=== PATIENT | male | born 1955 | race Caucasian/White ===

== ENCOUNTER 2016-06-11 20:57 | Emergency (ER) | payer OTHER ==
[2016-06-11] MEDS ORDERED: ASPIRIN 81 MG CHEW TAB ONE (21:03)
[2016-06-11] MEDS ORDERED: NITROGLYCERIN 0.4 MG TAB.SUBL SL ONE (21:03)
[2016-06-11] MEDS ORDERED: 0.9 % SODIUM CHLORIDE 1,000 ML IV ONE (21:03)
[2016-06-11] MEDS: NITROGLYCERIN 0.4 MG TAB.SUBL SL PRN ×3 (21:05→21:15)
[2016-06-11] MEDS ORDERED: MORPHINE SULFATE 4 MG/ML DISP.SYRIN IVP ONE ×2 (21:06→22:36)
[2016-06-11] MEDS ORDERED: ASPIRIN 81 MG CHEW TAB PO ONE (21:06)
--- NOTE | 2016-06-11 21:10 | ED Physician Documentation ---
Chest Pain - HISTORIAN Historian: patient - HPI Chief Complaint: Chest Pain Additional Information: started 3 days ago, on-off. has cardiac stent history, but NO AMI. He takes isosorbide at home. substernal achy chest pain with radiation to back and left arm. no other symptoms, no SOA, no diaphoresis. Onset: days ago Timing: gradual onset Duration: waxing, waning (he states that he has been having similar pain ever since his olaststent was placed. He last saw his solutions architect in april. he had angigram that was ok.) Last known Well Date: 06/09/16 Last Known Well Time: 21:11 Context: rest Severity: mild Quality: aching Chest Pain Radiation: arms, back Chest Pain Signs/Symptoms: denies: nausea, vomiting, diaphoresis, cool extremities, dizziness, dyspnea, tachypnea, tachycardia, hypotension, palpitations, weakness Worsened By: nothing Relieved By: nothing Further Comments: no - ROS CONST: no problems MS/LYMPH: none GI/: none. denies: vomiting, nausea EYES/ENT: none SKIN/ENDO: none NEURO/PSYCH: none - PAST HX DC risk factors: hypertension, cardiac disease, angina DVT/PE Risk Factors: none TAD/AAA risk factors: none Neuro deficit: none GI disease: none Lung disease: none Surgeries/Procedures: cardiac stent Immunizations: UTD Allergies/Adverse Reactions: Allergies Allergy/AdvReac Type Severity Reaction Status Date / Time No Known Allergies Allergy Verified 11/07/13 11:24 Home Medications: Ambulatory Orders Medication Instructions Recorded Aspirin EC [Ecotrin] 300 mg PO DAILY 11/07/13 - SOCIAL HX Smoking History: non-smoker Alcohol Use: none Drug Use: none - FAMILY HX Family HX: none - VITAL SIGNS Vital Signs: Vital Signs Temp Pulse Resp BP Pulse Ox 174/99 11/07/13 13:00 - REVIEWED ASSESSMENTS Nursing Assessment Reviewed: Yes Vitals Reviewed: Yes Progress - Progress Progress: Dr Bartlett, salesperson [employer] for [facility] called, he agrees that we should send him to [facility]. Talked to patient and he doesn't want to let the ambulance drive him. I gave him no choice. Dr Bartlett wants him to have lovenox 1mg/kg ED Results Lab/Radiology - Orders Orders: ED Orders Category Date Time Status Continuous EKG monitoring Q30M Care 06/11/16 21:06 Ordered Continuous Pulse Oximetry Q30M Care 06/11/16 21:[address] Saline Lock/IV NOW Care 06/11/16 21:06 Ordered CHEST 1 VIEW [RAD] Stat Exams 06/11/16 21:06 Ordered CBC/PLATELET/DIFF Routine Lab 06/11/16 21:06 Ordered CMP Routine Lab 06/11/16 21:06 Ordered CREATINE KINASE Routine Lab 06/11/16 21:06 Ordered TROPONIN I (cTnI) Stat Lab 06/11/16 21:06 Ordered 0.9 % Sodium Chloride [Normal Saline] 1,000 ml Med 06/11/16 21:03 Discontinued IV .STK-MED Aspirin Med 06/11/16 21:03 Discontinued 324 mg .ROUTE .STK-MED ONE Aspirin Med 06/11/16 21:06 Once 324 mg PO NOW ONE Morphine Sulfate [DepoDUR] Med 06/11/16 21:06 Once 2 mg IVP NOW ONE Nitroglycerin [Nitroquick] Med 06/11/16 21:06 Ordered 0.4 mg SL Q5M PRN Nitroglycerin [Nitroquick] Med 06/11/16 21:03 Discontinued 1.2 mg SL .STK-MED ONE Oxygen Daily Oxygen 06/11/16 21:15 Ordered EKG WITH COMPARISON Stat Ther 06/11/16 21:06 Ordered Chest Pain Physical Exam - EXAM General Appearance: no acute distress EENT: eye inspection normal, ENT inspection normal, pharynx normal Neck: nml inspection Respiratory: no resp. distress, nml breath sounds. No: resp.distress, manifests distinct pain on movement, wheezes, rales, rhonchi CVS: reg. rate & rhythm, no murmur Abdomen: soft Skin: warm/dry, normal color. No: diaphoresis Extremities: non-tender, normal range of motion, no evidence of injury, no edema Neuro: oriented X3, mood/affect nml, cognition normal Discharge Clincal Impression: Chest pain at rest CAD (coronary artery disease) Qualifiers: Coronary Disease-Associated Artery/Lesion type: unspecified vessel or lesion type [place] vs. transplanted heart: [place] heart Associated angina: with unspecified angina Qualified Code(s): I25.119 - Atherosclerotic heart disease of [place] coronary artery with unspecified angina pectoris Referrals: Beach,Sruthi Irene, [employer] [Primary Care Provider] - 2 Days Home Medications: Ambulatory Orders Aspirin EC [Ecotrin] 300 mg PO DAILY 11/07/13 Condition: Stable Disposition: XFER SHT-TRM HOSP Decision to Admit: NO Date of Decison to Admit: 06/11/16 Decision Time: 22:33
[2016-06-11 21:16] LABS: BASOPHILS % 0.3 (0.0-1.5); EOSINOPHILS % 3.1 % (0.0-6.8); LYMPHOCYTES # 2.5 # k/uL (0.6-4.0); MEAN CORPUSCULAR HEMOGLOBIN 30.8 pg (28.0-34.0); MONOCYTES # 0.4 # k/uL (0.0-0.9); MONOCYTES % 5.6 % (0.0-11.0); NEUTROPHILS # 4.1 # k/uL (1.4-7.7)
[2016-06-11] MEDS ORDERED: MORPHINE SULFATE 2 MG/ML DISP.SYRIN ONE ×3 (21:24→22:13)
[2016-06-11 21:30] LABS: eGFR (African) > 60; eGFR (Non-African) > 60
[2016-06-11] MEDS ORDERED: MORPHINE SULFATE 2 MG/ML DISP.SYRIN IVP ONE ×2 (21:50→22:12)
[2016-06-11] MEDS ORDERED: KETOROLAC TROMETHAMINE 30 MG/1ML VIAL ONE (22:13)
[2016-06-11] MEDS ORDERED: ENOXAPARIN SODIUM 100 MG/ML DISP.SYRIN SQ ONE ×2 (22:29→22:30)
[2016-06-11] MEDS ORDERED: KETOROLAC TROMETHAMINE 30 MG/1ML VIAL IVP ONE (22:35)
[2016-06-11] MEDS ORDERED: LABETALOL HCL 100MG/20ML VIAL IVP STA (22:49)
[2016-06-11 23:29] VITALS: BP 139/91
--- NOTE | 2016-06-12 06:04 | Diagnostic Imaging Report ---
Report Submission Date: Jun 11, 2016 9:39:37 PM CDT Patient ~ Study Name: JEANNE SAM ~ Date: Jun 11, 2016 9:22:50 PM CDT ~ Modality Type: CR Gender: M ~ Description: CHEST : 51 ~ Institution: [facility] Physician: JUDIT SUTHERLAND ~ ~ ~ ~ Portable chest History: Chest pain Findings: The lungs are clear. Heart size and pulmonary vascularity are normal. Osseous structures are unremarkable. There is no pleural effusion or pneumothorax. Impression: Normal. ~ Electronically signed on Jun 11, 2016 9:39:37 PM CDT by: Julius GALLEGOS
[2016-06-12] MEDS ORDERED: ASPIRIN PO SCH (09:00)
== END 2016-06-11 23:04 | disposition short-term general hospital (02) ==
LOC: ED 20:57
DX: R07.9 Chest pain, unspecified (principal); I25.119 Atherosclerotic heart disease of native coronary artery with unspecified angina pectoris
CPT/HCPCS: 71010; 80053; 82550; 84484; 85025; 96361; 96374; 99284; J1650; J1885; J2270; J3490; J7030; S1016